=== PATIENT | female | born 2005 | race Caucasian/White ===

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

== ENCOUNTER 2023-08-09 14:39 | Emergency (ER) | payer OTHER ==
--- OUTSIDE RECORDS SUMMARY | 2023-08-09 14:45 | XMS REPORT | Continuity of Care Document ---
:2005 Author Organization [facility] t Address [address] [place] [address] Care Team Providers Name Role Phone Elizabeth Avery Primary Care Physician [phone] Betty Blair Attending Clinician Unknown, Attending Attending Clinician Unavailable BETTY ABEBE Attending Clinician Unavailable Bar Garcia RN Attending Clinician Unavailable ELIZABETH URRUTIA Attending Clinician Unavailable Elizabeth Avery Attending Clinician [phone] Doctor Unassigned, [place] Attending Clinician Unavailable CHUY GREEN Attending Clinician Unavailable Chuy Holland Attending Clinician KASH JEFFERSON Attending Clinician Unavailable Mninie Kaiser MD Attending Clinician Kash Jefferson MD Attending Clinician Antwan Noriega MD Attending Clinician Adi Diggs MD Attending Clinician JAYLEEN MONTAÑO Attending Clinician Unavailable Jayleen Montaño MD Attending Clinician Ultrasound, Ang-Mfm Attending Clinician Unavailable Trent Villegas MD Attending Clinician TRENT VILLEGAS Attending Clinician Unavailable Livia NICHOLS, Kit Alexander Attending Clinician KIT BHAKTA Attending Clinician Unavailable Aneudy NICHOLS, Tiffany Gleason Attending Clinician TIFFANY AMADO Attending Clinician Unavailable SHARON TIAN Attending Clinician Unavailable Jaylan LYNNE, Sharon Escobedo Attending Clinician JONNY OLVERA Attending Clinician Unavailable Jonny Olvera MD Attending Clinician JAYLEEN MONTAÑO Admitting Clinician Unavailable KASH JEFFERSON Admitting Clinician Unavailable Kash Jefferson MD Admitting Clinician Jayleen Montaño MD Admitting Clinician Payers Payer Name Policy Type Policy Number Effective Date Expiration Date S cirilo [facility]LY [facility] [id number] 2021 00:00:00 [place] [id number] 2021 00:00:00 Problems Condition Condition Condition Status Onset Resolution Last Treating Co mments Source Name Details Category Date Date Treatment Clinician Date Nexplanon Nexplanon Disease Active Uni vers insertion insertion 1-17 ity of 00:00: [place] [facility] Other Other Disease Active Univers general general 9-27 [place] [facility] contracept contracept chiara chiara management management Disease Active U nivers care and care and 906 ity of examinatio examinatio [place] of n of 00 Medical lactating lactating Bran ch mother mother Acute Acute Disease Active Univers blood loss blood loss 8-15 it y of anemia anemia 00:00: [place] [facility] Branch Obstetrica Obstetrica Disease Active U nivers l l 8-15 ity of laceration [place] BMI BMI Disease Active Univers 26.0-26.9, 26.0-26.9, 7-21 it y of adult adult 00:00: [place] [facility] Allergies, Adverse Reactions, Alerts Allergy Allergy Status Severity Reaction(s) Onset Inactive Treating Comm ents Source Name Type Date Date Clinician NO KNOWN Drug Active Univers ALLERGIE Class ity of S [facility] Social History Social Habit Start Date Stop Date Quantity Comments Source Gender identity Universit y [facility] Sexual orientation Univer sity [facility] Alcohol intake 2023-06-16 2023-06-16 Lifetime University of 00:00:00 00:00:00 non-drinker [facility] (finding) [place] Exposure to 2022-12-01 2022-12-11 Not sure [facility] SARS-CoV-2 (event) 00:00:00 12:08:00 [facility] History of Social 2022-08-22 2022-08-22 Univers ity of function 00:00:00 00:00:00 [facility] Tobacco use and 2022-06-15 2022-06-15 Former smokeless Uni versity of exposure 00:00:00 00:00:00 tobacco user Formerly [facility] Tobacco Comment 2022-06-15 2022-06-15 vapes Universit y of 00:00:00 00:00:00 [facility] History of tobacco 2021-11-[address] [facility] sity of use 00:00:00 smokeless [facility] tobacco [place] Sex Assigned At [birth year] Universit y of 00:00:00 00:00:00 [facility] Smoking Status Start Date Stop Date Source Ex-smoker 2022-06-15 00:00:00 2022-06-15 00:00:00 [facility] Medications Ordered Filled Start Stop Current Ordering Indication Dosage Frequency Signature Comments Components Source Medication Medication Date Date Medication? Clinician (SIG) Name Name phenazopyri Yes [id number] 200mg Take 1 Univers dine 06-16 tablet by ity of (PYRIDIUM) 00:00[place] (three) Medical tablet times Branch daily as needed for Pain. Nitrofurant 2022- Yes [id number] 100mg Take 1 Univers oin&Nit. 06-16 07-28 capsule by ity of [place] 04[place] (MACROBID[place] :00 the Medical 100 mg morning Branch capsule and 1 capsule in the evening. Do all this for 5 days. etonogestre 2022- No [id number] 68mg Univers L 12-12 ity of (NEXPLANON) 17:15: 16:41 [place] implant 68 00 :00 Medical mg Branch etonogestre 2022- No [id number] 68mg 68 mg, Univers L 12-12 Subdermal, ity of (NEXPLANON) 17:15: 16:41 ONCE NOW, [place] implant 68 00 :00 1 dose, On Med ical mg e [place] 12/12/22 at 1115, Routine
Use approved by: LITERACY COORDINATOR etonogestre 2022- No [id number] 68mg Univers L 12-12 ity of (NEXPLANON) 17:15: 16:41 [place] implant 68 00 :00 Medical mg Branch etonogestre 2022- No [id number] 68mg 68 mg, Univers L 12-12 Subdermal, ity of (NEXPLANON) 17:15: 16:41 ONCE NOW, [place] implant 68 00 :00 1 dose, On Med ical mg [facility] 12/12/22 at 1115, Routine
Use approved by: LITERACY COORDINATOR [facility]11 Yes [id number] 1{tbl} TAKE 1 Univers NE 0.35 mg 2-14 TABLET BY ity of tablet 00:00: MOUTH IN [address] NORETHINDRO 2021-11 Yes [id number] 1{tbl} TAKE 1 Univers NE 0.35 mg 2-14 TABLET BY ity of tablet 00:00: MOUTH IN [address] NORETHINDRO 2021-11 Yes [id number] 1{tbl} TAKE 1 Univers NE 0.35 mg 2-14 TABLET BY ity of tablet 00:00: MOUTH IN [address] NORETHINDRO 2021-11 Yes [id number] 1{tbl} TAKE 1 Univers NE 0.35 mg 2-14 TABLET BY ity of tablet 00:00: MOUTH IN [address] NORETHINDRO 2021-11 Yes [id number] 1{tbl} TAKE 1 Univers NE 0.35 mg 2-14 TABLET BY ity of tablet 00:00: MOUTH IN [place] 00 THE Medical MORNING Branch NORETHINDRO 2021-11 Yes [id number] 1{tbl} TAKE 1 Univers NE 0.35 mg 2-14 TABLET BY ity of tablet 00:00: MOUTH IN [place] THE MORNING Branch NORETHINDRO 2021-11 Yes [id number] 1{tbl} TAKE 1 Univers NE 0.35 mg 2-14 TABLET BY ity of tablet 00:00: MOUTH IN [place] THE Medical MORNING Branch NORETHINDRO 2021-11 Yes [id number] 1{tbl} TAKE 1 Univers NE 0.35 mg 2-14 TABLET BY ity of tablet 00:00: MOUTH IN [place] THE Medical MORNING Branch NORETHINDRO 2021-11 Yes [id number] 1{tbl} TAKE 1 Univers NE 0.35 mg 2-14 TABLET BY ity of tablet 00:00: MOUTH IN [place] THE Medical MORNING Branch norethindro Yes [id number] 1{tbl} Take 1 Univers ne 0.35 mg 9-27 tablet by ity of tablet 00:00: mouth in [place] 00 the Medical morning. Branch norethindro Yes [id number] 1{tbl} Take 1 Univers ne 0.35 mg 9-27 tablet by ity of tablet 00:00: mouth in [place] the morning. Branch norethindro Yes [id number] 1{tbl} Take 1 Univers ne 0.35 mg 9-27 tablet by ity of tablet 00:00: mouth in [place] the Medical morning. Branch norethindro 2021- No [id number] 1{tbl} Take 1 Univers ne 0.35 mg 9-27 12-14 tablet by ity of tablet 00:00: 00:00 mouth in [place] 00 :00 the Medical morning. Branch ibuprofen Yes [id number] 600mg Take 1 U nivers 600 mg 8-15 tablet by ity of tablet 00:00: mouth [place] 00 every 6 Medical (six) Branch hours as needed (Pain). Take with food or milk. Iron Fum & Yes [id number] 1{capsu Take 1 Univers P-FA-Vit B 8-15 le} capsule by ity of & C No.9 00:00: mouth [place] (INTEGRA 00 daily. Medical PLUS) 125 Branch mg iron- 1 mg Cap ibuprofen 2022-0 Yes [id number] 600mg Take 1 U nivers 600 mg 8-15 tablet by ity of tablet 00:00: mouth [place] 00 every 6 Medical (six) Branch hours as needed (Pain). Take with food or milk. Iron Fum & 2021-0 Yes [id number] 1{capsu Take 1 Univers P-FA-Vit B 8-15 le} capsule by ity of & C No.9 00:00: mouth [place] (INTEGRA 00 daily. Medical PLUS) 125 Branch mg iron- 1 mg Cap ibuprofen 2-0 Yes [id number] 600mg Take 1 U nivers 600 mg 8-15 tablet by ity of tablet 00:00: mouth [place] 00 every 6 Medical (six) Branch hours as needed (Pain). Take with food or milk. Iron Fum & 2021-0 Yes [id number] 1{capsu Take 1 Univers P-FA-Vit B 8-15 le} capsule by ity of & C No.9 00:00: mouth [place] (INTEGRA 00 daily. Medical PLUS) 125 Branch mg iron- 1 mg Cap ibuprofen 2-0 Yes [id number] 600mg Take 1 U nivers 600 mg 8-15 tablet by ity of tablet 00:00: mouth [place] 00 every 6 Medical (six) Branch hours as needed (Pain). Take with food or milk. Iron Fum & 2021-0 Yes [id number] 1{capsu Take 1 Univers P-FA-Vit B 8-15 le} capsule by ity of & C No.9 00:00: mouth [place] (INTEGRA 00 daily. Medical PLUS) 125 Branch mg iron- 1 mg Cap ibuprofen 2022-0 Yes [id number] 600mg Take 1 U nivers 600 mg 8-15 tablet by ity of tablet 00:00: mouth [place] 00 every 6 Medical (six) Branch hours as needed (Pain). Take with food or milk. Iron Fum & 2021-0 Yes [id number] 1{capsu Take 1 Univers P-FA-Vit B 8-15 le} capsule by ity of & C No.9 00:00: mouth [place] (INTEGRA 00 daily. Medical PLUS) 125 Branch mg iron- 1 mg Cap ibuprofen 2-0 Yes [id number] 600mg Take 1 U nivers 600 mg 8-15 tablet by ity of tablet 00:00: mouth [place] 00 every 6 Medical (six) Branch hours as needed (Pain). Take with food or milk. Iron Fum & 2021-0 Yes [id number] 1{capsu Take 1 Univers P-FA-Vit B 8-15 le} capsule by ity of & C No.9 00:00: mouth [place] (INTEGRA 00 daily. Medical PLUS) 125 Branch mg iron- 1 mg Cap ibuprofen 2021-0 Yes [id number] 600mg Take 1 U nivers 600 mg 8-15 tablet by ity of tablet 00:00: mouth [place] 00 every 6 Medical (six) Branch hours as needed (Pain). Take with food or milk. Iron Fum & 2021-0 Yes [id number] 1{capsu Take 1 Univers P-FA-Vit B 8-15 le} capsule by ity of & C No.9 00:00: mouth [place] (INTEGRA 00 daily. Medical PLUS) 125 Branch mg iron- 1 mg Cap ibuprofen 2021-0 Yes [id number] 600mg Take 1 U nivers 600 mg 8-15 tablet by ity of tablet 00:00: mouth [place] 00 every 6 Medical (six) Branch hours as needed (Pain). Take with food or milk. Iron Fum & 2021-0 Yes [id number] 1{capsu Take 1 Univers P-FA-Vit B 8-15 le} capsule by ity of & C No.9 00:00: mouth [place] (INTEGRA 00 daily. Medical PLUS) 125 Branch mg iron- 1 mg Cap ibuprofen 2021-0 Yes [id number] 600mg Take 1 U nivers 600 mg 8-15 tablet by ity of tablet 00:00: mouth [place] 00 every 6 Medical (six) Branch hours as needed (Pain). Take with food or milk. Iron Fum & 2021-0 Yes [id number] 1{capsu Take 1 Univers P-FA-Vit B 8-15 le} capsule by ity of & C No.9 00:00: mouth [place] (INTEGRA 00 daily. Medical PLUS) 125 Branch mg iron- 1 mg Cap ibuprofen 2-0 Yes [id number] 600mg Take 1 U nivers 600 mg 8-15 tablet by ity of tablet 00:00: mouth [place] 00 every 6 Medical (six) Branch hours as needed (Pain). Take with food or milk. Iron Fum & Yes [id number] 1{capsu Take 1 Univers P-FA-Vit B 8-15 le} capsule by ity of & C No.9 00:00: mouth [place] (INTEGRA 00 daily. Medical PLUS) 125 Branch mg iron- 1 mg Cap ibuprofen 0 Yes [id number] 600mg Take 1 U nivers 600 mg 8-15 tablet by ity of tablet 00:00: mouth [place] every 6 Medical (six) Branch hours as needed (Pain). Take with food or milk. Iron Fum & Yes [id number] 1{capsu Take 1 Univers P-FA-Vit B 8-15 le} capsule by ity of & C No.9 00:00: mouth [place] (INTEGRA 00 daily. Medical PLUS) 125 Branch mg iron- 1 mg Cap ibuprofen 0 Yes [id number] 600mg Take 1 U nivers 600 mg 8-15 tablet by ity of tablet 00:00: mouth [place] every 6 Medical (six) Branch hours as needed (Pain). Take with food or milk. Iron Fum & Yes [id number] 1{capsu Take 1 Univers P-FA-Vit B 8-15 le} capsule by ity of & C No.9 00:00: mouth [place] (INTEGRA 00 daily. Medical PLUS) 125 Branch mg iron- 1 mg Cap ibuprofen 0 Yes [id number] 600mg Take 1 U nivers 600 mg 8-15 tablet by ity of tablet 00:00: mouth [place] every 6 Medical (six) Branch hours as needed (Pain). Take with food or milk. Iron Fum & Yes [id number] 1{capsu Take 1 Univers P-FA-Vit B 8-15 le} capsule by ity of & C No.9 00:00: mouth [place] (INTEGRA 00 daily. Medical PLUS) 125 Branch mg iron- 1 mg Cap 0 Yes [id number] 1{packe Take 1 Univers vit 1-31 t} Packet by ity of 33-iron-fol 00:00: mouth [place] ic-dha 00 daily. Medical (SELECT-OB Branch + DHA) 29 mg iron-1 mg -250 mg combo pack Yes [id number] 1{packe Take 1 Univers vit 1-31 t} Packet by ity of 33-iron-fol 00:00: mouth [place] ic-dha 00 daily. Medical (SELECT-OB Branch + DHA) 29 mg iron-1 mg -250 mg combo pack Yes [id number] 1{packe Take 1 Univers vit 1-31 t} Packet by ity of 33-iron-fol 00:00: mouth [place] ic-dha 00 daily. Medical (SELECT-OB Branch + DHA) 29 mg iron-1 mg -250 mg combo pack Yes [id number] 1{packe Take 1 Univers vit 1-31 t} Packet by ity of 33-iron-fol 00:00: mouth [place] ic-dha 00 daily. Medical (SELECT-OB Branch + DHA) 29 mg iron-1 mg -250 mg combo pack Yes [id number] 1{packe Take 1 Univers vit 1-31 t} Packet by ity of 33-iron-fol 00:00: mouth [place] ic-dha 00 daily. Medical (SELECT-OB Branch + DHA) 29 mg iron-1 mg -250 mg combo pack Yes [id number] 1{packe Take 1 Univers vit 1-31 t} Packet by ity of 33-iron-fol 00:00: mouth [place] ic-dha daily. Medical (SELECT-OB Branch + DHA) 29 mg iron-1 mg -250 mg combo pack Yes [id number] 1{packe Take 1 Univers vit 1-31 t} Packet by ity of 33-iron-fol 00:00: mouth [place] ic-dha 00 daily. Medical (SELECT-OB Branch + DHA) 29 mg iron-1 mg -250 mg combo pack Yes [id number] 1{packe Take 1 Univers vit 1-31 t} Packet by ity of 33-iron-fol 00:00: mouth [place] ic-dha 00 daily. Medical (SELECT-OB Branch + DHA) 29 mg iron-1 mg -250 mg combo pack Yes [id number] 1{packe Take 1 Univers vit 1-31 t} Packet by ity of 33-iron-fol 00:00: mouth [place] ic-dha 00 daily. Medical (SELECT-OB Branch + DHA) 29 mg iron-1 mg -250 mg combo pack Yes [id number] 1{packe Take 1 Univers vit 1-31 t} Packet by ity of 33-iron-fol 00:00: mouth [place] ic-dha 00 daily. Medical (SELECT-OB Branch + DHA) 29 mg iron-1 mg -250 mg combo pack Yes [id number] 1{packe Take 1 Univers vit 1-31 t} Packet by ity of 33-iron-fol 00:00: mouth [place] ic-dha 00 daily. Medical (SELECT-OB Branch + DHA) 29 mg iron-1 mg -250 mg combo pack Yes [id number] 1{packe Take 1 Univers vit 1-31 t} Packet by ity of 33-iron-fol 00:00: mouth [place] ic-dha 00 daily. Medical (SELECT-OB Branch + DHA) 29 mg iron-1 mg -250 mg combo pack Yes [id number] 1{packe Take 1 Univers vit 1-31 t} Packet by ity of 33-iron-fol 00:00: mouth [place] ic-dha 00 daily. Medical (SELECT-OB Branch + DHA) 29 mg iron-1 mg -250 mg combo pack Immunizations Ordered Immunization Filled Immunization Date Status Commen ts Source Name Name HPV9 2022-11-21 Completed University of 00:00:00 [facility] HPV9 2022-11-21 Completed University of 00:00: [facility] HPV9 2022-11-21 Completed University of 00:00:00 [facility] HPV9 2022-11-21 Completed University of 00:00: [facility] HPV9 2022-11-21 Completed University of 00:00:00 [facility] HPV9 2022-11-21 Completed University of 00:00:00 [facility] HPV9 2022-11-21 Completed University of 00:00: [facility] HPV9 2022-11-21 Completed University of 00:00: [facility] HPV9 2022-07-10 Completed University of 00:00:00 [facility] HPV9 2022-07-10 Completed University of 00:00: [facility] HPV9 2022-07-10 Completed University of 00:00:00 [facility] HPV9 2022-07-10 Completed University of 00:00:00 [place] [facility] HPV9 2022-07-10 Completed University of 00:00:00 [facility] Branch HPV9 2022-07-10 Completed University of 00:00:00 [place] [facility] HPV9 2022-07-10 Completed University of 00:00:00 [facility] Branch HPV9 2022-07-10 Completed University of 00:00:00 [facility] Branch HPV9 2022-07-10 Completed University of 00:00:00 [place] [facility] HPV9 2022-07-10 Completed University of 00:00:00 [place] [facility] HPV9 2022-07-10 Completed University of 00:00:00 [facility] Branch HPV9 2022-07-10 Completed University of 00:00:00 [facility] Branch HPV9 2022-07-10 Completed University of 00:00:00 [facility] Branch TDAP 2022-04-18 Completed University of 00:00:00 [facility] Branch TDAP 2022-04-18 Completed University of 00:00:00 [place] [facility] TDAP 2022-04-18 Completed University of 00:00:00 [place] [facility] TDAP 2022-04-18 Completed University of 00:00:00 [place] [facility] TDAP 2022-04-18 Completed University of 00:00:00 [place] [facility] TDAP 2022-04-18 Completed University of 00:00:00 [place] [facility] TDAP 2022-04-18 Completed University of 00:00:00 [facility] Branch TDAP 2022-04-18 Completed University of 00:00:00 [facility] Branch TDAP 2022-04-18 Completed University of 00:00:00 [place] [facility] TDAP 2022-04-18 Completed University of 00:00:00 [place] [facility] TDAP 2022-04-18 Completed University of 00:00:00 [place] [facility] TDAP 2022-04-18 Completed University of 00:00:00 [place] [facility] TDAP 2022-04-18 Completed University of 00:00:00 [facility] Branch HPV9 2021-07-13 Completed University of 00:00:00 [facility] HPV9 2021-07-13 Completed University of 00:00:00 [facility] Branch HPV9 2021-07-13 Completed University of 00:00:00 [facility] Branch HPV9 2021-07-13 Completed University of 00:00: [facility] HPV9 2021-07-13 Completed University of 00:00: [facility] HPV9 2021-07-13 Completed University of 00:00: [facility] Branch HPV9 2021-07-13 Completed University of 00:00: [facility] Branch HPV9 2021-07-13 Completed University of 00:00: [facility] Branch HPV9 2021-07-13 Completed University of 00:00: [facility] HPV9 2021-07-13 Completed University of 00:00: [facility] Branch HPV9 2021-07-13 Completed University of 00:00: [facility] HPV9 2021-07-13 Completed University of 00:00:00 [facility] HPV9 2021-07-13 Completed University of 00:00:00 [facility] Influenza Virus 2017-03-20 Completed Universit y of Vaccine Quad .5 mL IM 00:00:00 [place] as Medical 6+ MO Branch HPV9 2017-03-20 Completed University of 00:00:00 [facility] Meningococcal 2017-03-20 Completed University of Polysaccharide 00:00:00 [place] Medi mundo (groups A, C, Y and Branc h W-135) conjugate vaccine (MCV4P) Influenza Virus 2017-03-20 Completed Universit y of Vaccine Quad .5 mL IM 00:00:00 [place] as Medical 6+ MO Branch HPV9 2017-03-20 Completed University of 00:00:00 [facility] Meningococcal 2017-03-20 Completed University of Polysaccharide 00:00:00 [place] Medi mundo (groups A, C, Y and Branc h W-135) conjugate vaccine (MCV4P) Influenza Virus 2017-03-20 Completed Universit y of Vaccine Quad .5 mL IM 00:00:00 [place] as Medical 6+ MO Branch HPV9 2017-03-20 Completed University of 00:00:00 [facility] Meningococcal 2017-03-20 Completed University of Polysaccharide 00:00:00 [place] Medi mundo (groups A, C, Y and Branc h W-135) conjugate vaccine (MCV4P) Influenza Virus 2017-03-20 Completed Universit y of Vaccine Quad .5 mL IM 00:00:00 [place] as Medical 6+ MO Branch HPV9 2017-03-20 Completed University of 00:00:00 [facility] Meningococcal 2017-03-20 Completed University of Polysaccharide 00:00:00 [place] Medi mundo (groups A, C, Y and Branc h W-135) conjugate vaccine (MCV4P) Influenza Virus 2017-03-20 Completed Universit y of Vaccine Quad .5 mL IM 00:00:00 [place] as Medical 6+ MO Branch HPV9 2017-03-20 Completed University of 00:00:00 [facility] Meningococcal 2017-03-20 Completed University of Polysaccharide 00:00:00 [place] Medi mundo (groups A, C, Y and Branc h W-135) conjugate vaccine (MCV4P) Influenza Virus 2017-03-20 Completed Universit y of Vaccine Quad .5 mL IM 00:00:00 [place] as Medical 6+ MO Branch HPV9 2017-03-20 Completed University of 00:00:00 [facility] Meningococcal 2017-03-20 Completed University of Polysaccharide 00:00:00 [place] Medi mundo (groups A, C, Y and Branc h W-135) conjugate vaccine (MCV4P) TDAP 2015-05-13 Completed University of 00:00:00 [facility] TDAP 2015-05-13 Completed University of 00:00:00 [facility] TDAP 2015-05-13 Completed University of 00:00:00 [facility] TDAP 2015-05-13 Completed University of 00:00:00 [facility] TDAP 2015-05-13 Completed University of 00:00:00 [facility] TDAP 2015-05-13 Completed University of 00:00:00 [facility] DTaP, Unspecified 2008-10-26 Completed Univers ity of Formulation 00:00:00 [facility] HEPATITIS A 2008-10-26 Completed University of 00:00:00 [facility] MMR 2008-10-26 Completed University of 00:00:00 [facility] IPV 2008-10-26 Completed University of 00:00:00 [facility] Varicella 2008-10-26 Completed University of (varivax)(chicken 00:00:00 [facility] edical pox) Branch DTaP, Unspecified 2008-10-26 Completed Univers ity of Formulation 00:00:00 [facility] HEPATITIS A 2008-10-26 Completed University of 00:00:00 [facility] MMR 2008-10-26 Completed University of 00:00:00 [facility] IPV 2008-10-26 Completed University of 00:00:00 [facility] Varicella 2008-10-26 Completed University of (varivax)(chicken 00:00:00 [place] M edical pox) Branch DTaP, Unspecified 2008-10-26 Completed Univers ity of Formulation 00:00:00 [facility] HEPATITIS A 2008-10-26 Completed University of 00:00:00 [facility] MMR 2008-10-26 Completed University of 00:00:00 [facility] IPV 2008-10-26 Completed University of 00:00:00 [facility] Varicella 2008-10-26 Completed University of (varivax)(chicken 00:00:00 [place] M edical pox) Branch DTaP, Unspecified 2008-10-26 Completed Univers ity of Formulation 00:00:00 [facility] HEPATITIS A 2008-10-26 Completed University of 00:00:00 [facility] MMR 2008-10-26 Completed University of 00:00:00 [facility] IPV 2008-10-26 Completed University of 00:00:00 [facility] Varicella 2008-10-26 Completed University of (varivax)(chicken 00:00:00 [place] M edical pox) Branch DTaP, Unspecified 2008-10-26 Completed Univers ity of Formulation 00:00:00 [facility] HEPATITIS A 2008-10-26 Completed University of 00:00:00 [place] [facility] MMR 2008-10-26 Completed University of 00:00:00 [facility] IPV 2008-10-26 Completed University of 00:00:00 [facility] Varicella 2008-10-26 Completed University of (varivax)(chicken 00:00:00 [place] [facility] DTaP, Unspecified 2008-10-26 Completed Univers ity of Formulation 00:00:00 [facility] HEPATITIS A 2008-10-26 Completed University of 00:00:00 [facility] MMR 2008-10-26 Completed University of 00:00:00 [facility] IPV 2008-10-26 Completed University of 00:00:00 [facility] Varicella 2008-10-26 Completed University of (varivax)(chicken 00:00:00 [place] [facility] HEPATITIS A 2007 Completed University of 00:00:00 [facility] HEPATITIS A 2007 Completed University of 00:00:00 [facility] HEPATITIS A 2007 Completed University of 00:00:00 [facility] HEPATITIS A 2007 Completed University of 00:00:00 [facility] HEPATITIS A 2007 Completed University of 00:00:00 [facility] HEPATITIS A 2007 Completed University of 00:00:00 [facility] DTaP, Unspecified 2004-07-28 Completed Univers ity of Formulation 00:00:00 [facility] HIB 4 Dose Schedule 2004-07-28 Completed Unive rsity of 00:00:00 [facility] DTaP, Unspecified 2004-07-28 Completed Univers ity of Formulation 00:00:00 [facility] HIB 4 Dose Schedule 2004-07-28 Completed Unive rsity of 00:00:00 [facility] DTaP, Unspecified 2004-07-28 Completed Univers ity of Formulation 00:00:00 [facility] HIB 4 Dose Schedule 2004-07-28 Completed Unive rsity of 00:00:00 [facility] DTaP, Unspecified 2004-07-28 Completed Univers ity of Formulation 00:00:00 [facility] HIB 4 Dose Schedule 2004-07-28 Completed Unive rsity of 00:00:00 [facility] DTaP, Unspecified 2004-07-28 Completed Univers ity of Formulation 00:00:00 [facility] HIB 4 Dose Schedule 2004-07-28 Completed Unive rsity of 00:00:00 [facility] DTaP, Unspecified 2004-07-28 Completed Univers ity of Formulation 00:00:00 [facility] HIB 4 Dose Schedule 2004-07-28 Completed Unive rsity of 00:00:00 [facility] MMR 2004-05-19 Completed University of 00:00:00 [facility] IPV 2004-05-19 Completed University of 00:00:00 [facility] Varicella 2004-05-19 Completed University of (varivax)(chicken 00:00:00 [place] [facility] MMR 2004-05-19 Completed University of 00:00:00 [facility] IPV 2004-05-19 Completed University of 00:00:00 [facility] Varicella 2004-05-19 Completed University of (varivax)(chicken 00:00:00 [place] [facility]ox[facility] MMR 2004-05-19 Completed University of 00:00:00 [facility] IPV 2004-05-19 Completed University of 00:00:00 [facility] Varicella 2004-05-19 Completed University of (varivax)(chicken 00:00:00 [place] [facility] pox[facility] MMR 2004-05-19 Completed University of 00:00:00 [facility] IPV 2004-05-19 Completed University of 00:00:00 [facility] Varicella 2004-05-19 Completed University of (varivax)(chicken 00:00:00 [place] [facility] pox) [facility] MMR 2004-05-19 Completed University [facility] 00:00:00 [facility] IPV 2004-05-19 Completed University of 00:00:00 [facility] Varicella 2004-05-19 Completed University of (varivax)(chicken 00:00:00 [place] [facility] pox) [facility] MMR 2004-05-19 Completed University of 00:00:00 [facility] IPV 2004-05-19 Completed University of 00:00:00 [facility] Varicella 2004-05-19 Completed University of (varivax)(chicken 00:00:00 [facility] edical pox) Branch DTaP, Unspecified 2003 Completed Univers ity of Formulation 00:00:00 [facility] Hep B, Adol or Pedi 2003 Completed Unive rsity of Dosage 00:00:00 [facility] HIB 4 Dose Schedule 2003 Completed Unive rsity of 00:00:00 [facility] Pneumococcal 7 2003 Completed University of Conjugate, PCV7 00:00:00 [place] [facility] (Prevnar7) Branch DTaP, Unspecified 2003 Completed Univers ity of Formulation 00:00:00 [facility] Hep B, Adol or Pedi 2003 Completed Unive rsity of Dosage 00:00:00 [facility] HIB 4 Dose Schedule 2003 Completed Unive rsity of 00:00:00 [facility] Pneumococcal 7 2003 Completed University of Conjugate, PCV7 00:00:00 [place] [facility] (Prevnar7) Branch DTaP, Unspecified 2003 Completed Univers ity of Formulation 00:00:00 [facility] Hep B, Adol or Pedi 2003 Completed Unive rsity of Dosage 00:00:00 [facility] HIB 4 Dose Schedule 2003 Completed Unive rsity of 00:00:00 [facility] Pneumococcal 7 2003 Completed University of Conjugate, PCV7 00:00:00 [place] [facility] (Prevnar7) Branch DTaP, Unspecified 2003 Completed Univers ity of Formulation 00:00:00 [facility] Hep B, Adol or Pedi 2003 Completed Unive rsity of Dosage 00:00:00 [facility] HIB 4 Dose Schedule 2003 Completed Unive rsity of 00:00:00 [facility] Pneumococcal 7 2003 Completed University of Conjugate, PCV7 00:00:00 [place] [facility] (Prevnar7) Branch DTaP, Unspecified 2003 Completed Univers ity of Formulation 00:00:00 [facility] Hep B, Adol or Pedi 2003 Completed Unive rsity of Dosage 00:00:00 [facility] HIB 4 Dose Schedule 2003 Completed Unive rsity of 00:00:00 [facility] Pneumococcal 7 2003 Completed University of Conjugate, PCV7 00:00:00 [place] [facility] (Prevnar7) Branch DTaP, Unspecified 2003 Completed Univers ity of Formulation 00:00:00 [facility] Hep B, Adol or Pedi 2003 Completed Unive rsity of Dosage 00:00:00 [facility] HIB 4 Dose Schedule 2003 Completed Unive rsity of 00:00:00 [facility] Pneumococcal 7 2003 Completed University of Conjugate, PCV7 00:00:00 [place] [facility] (Prevnar7) Branch DTaP, Unspecified 2003 Completed Univers ity of Formulation 00:00:00 [facility] HIB 4 Dose Schedule 2003 Completed Unive rsity of 00:00:00 [facility] Pneumococcal 7 2003 Completed University of Conjugate, PCV7 00:00:00 [place] [facility] (Prevnar7) [facility] IPV 2003 Completed University of 00:00:00 [facility] DTaP, Unspecified 2003 Completed Univers ity of Formulation 00:00:00 [facility] HIB 4 Dose Schedule 2003 Completed Unive rsity of 00:00:00 [facility] Pneumococcal 7 2003 Completed University of Conjugate, PCV7 00:00:00 [place] [facility] (Prevnar7) [facility] IPV 2003 Completed University of 00:00:00 [facility] DTaP, Unspecified 2003 Completed Univers ity of Formulation 00:00:00 [facility] HIB 4 Dose Schedule 2003 Completed Unive rsity of 00:00:00 [facility] Pneumococcal 7 2003 Completed University of Conjugate, PCV7 00:00:00 [place] [facility] (Prevnar7) Branch IPV 2003 Completed University of 00:00:00 [facility] DTaP, Unspecified 2003 Completed Univers ity of Formulation 00:00:00 [facility] HIB 4 Dose Schedule 2003 Completed Unive rsity of 00:00:00 [facility] Pneumococcal 7 2003 Completed University of Conjugate, PCV7 00:00:00 [place] [facility] (Prevnar7) Branch IPV 2003 Completed University of 00:00:00 [facility] DTaP, Unspecified 2003 Completed Univers ity of Formulation 00:00:00 [facility] HIB 4 Dose Schedule 2003 Completed Unive rsity of 00:00:00 [facility] Pneumococcal 7 2003 Completed University of Conjugate, PCV7 00:00:00 [place] [facility] (Prevnar7) Branch IPV 2003 Completed University of 00:00:00 [facility] DTaP, Unspecified 2003 Completed Univers ity of Formulation 00:00:00 [facility] HIB 4 Dose Schedule 2003 Completed Unive rsity of 00:00:00 [facility] Pneumococcal 7 2003 Completed University of Conjugate, PCV7 00:00:00 [place] [facility] (Prevnar7) Branch IPV 2003 Completed University of 00:00:00 [facility] IPV 2003 Completed University of 00:00:00 [facility] IPV 2003 Completed University of 00:00:00 [facility] IPV 2003 Completed University of 00:00:00 [facility] IPV 2003 Completed University of 00:00:00 [facility] IPV 2003 Completed University of 00:00:00 [facility] IPV 2003 Completed University of 00:00:00 [facility] DTaP, Unspecified 2003 Completed Univers ity of Formulation 00:00:00 [facility] Hep B, Adol or Pedi 2003 Completed Unive rsity of Dosage 00:00:00 [facility] HIB 4 Dose Schedule 2003 Completed Unive rsity of 00:00:00 [facility] Pneumococcal 7 2003 Completed University of Conjugate, PCV7 00:00:00 [place] [facility] (Prevnar7) Branch IPV 2003 Completed University of 00:00:00 [facility] DTaP, Unspecified 2003 Completed Univers ity of Formulation 00:00:00 [facility] Hep B, Adol or Pedi 2003 Completed Unive rsity of Dosage 00:00:00 [facility] HIB 4 Dose Schedule 2003 Completed Unive rsity of 00:00:00 [facility] Pneumococcal 7 2003 Completed University of Conjugate, PCV7 00:00:00 [place] [facility] (Prevnar7) Branch IPV 2003 Completed University of 00:00:00 [facility] DTaP, Unspecified 2003 Completed Univers ity of Formulation 00:00:00 [facility] Hep B, Adol or Pedi 2003 Completed Unive rsity of Dosage 00:00:00 [facility] HIB 4 Dose Schedule 2003 Completed Unive rsity of 00:00:00 [facility] Pneumococcal 7 2003 Completed University of Conjugate, PCV7 00:00:00 [place] [facility] (Prevnar7) Branch IPV 2003 Completed University of 00:00:00 [facility] DTaP, Unspecified 2003 Completed Univers ity of Formulation 00:00:00 [facility] Hep B, Adol or Pedi 2003 Completed Unive rsity of Dosage 00:00:00 [facility] HIB 4 Dose Schedule 2003 Completed Unive rsity of 00:00:00 [facility] Pneumococcal 7 2003 Completed University of Conjugate, PCV7 00:00:00 [place] [facility] (Prevnar7) Branch IPV 2003 Completed University of 00:00:00 [facility] DTaP, Unspecified 2003 Completed Univers ity of Formulation 00:00:00 [facility] Hep B, Adol or Pedi 2003 Completed Unive rsity of Dosage 00:00:00 [facility] HIB 4 Dose Schedule 2003 Completed Unive rsity of 00:00:00 [facility] Pneumococcal 7 2003 Completed University of Conjugate, PCV7 00:00:00 [place] [facility] (Prevnar7) Branch IPV 2003 Completed University of 00:00:00 [facility] DTaP, Unspecified 2003 Completed Univers ity of Formulation 00:00:00 [facility] Hep B, Adol or Pedi 2003 Completed Unive rsity of Dosage 00:00:00 [facility] HIB 4 Dose Schedule 2003 Completed Unive rsity of 00:00:00 [facility] Pneumococcal 7 2003 Completed University of Conjugate, PCV7 00:00:00 [place] [facility] (Prevnar7) Branch IPV 2003 Completed University of 00:00:00 [facility] Hep B, Adol or Pedi 2003 Completed Unive rsity of Dosage 00:00:00 [facility] Hep B, Adol or Pedi 2003 Completed Unive rsity of Dosage 00:00:00 [facility] Hep B, Adol or Pedi 2003 Completed Unive rsity of Dosage 00:00:00 [facility] Hep B, Adol or Pedi 2003 Completed Unive rsity of Dosage 00:00:00 [facility] Hep B, Adol or Pedi 2003 Completed Unive rsity of Dosage 00:00:00 [facility] Hep B, Adol or Pedi 2003 Completed Unive rsity of Dosage 00:00:00 [facility] Hep B, Adol or Pedi 2003 Completed Unive rsity of Dosage 00:00:00 [facility] Hep B, Adol or Pedi 2003 Completed Unive rsity of Dosage 00:00:00 [facility] Hep B, Adol or Pedi 2003 Completed Unive rsity of Dosage 00:00:00 [facility] Hep B, Adol or Pedi 2003 Completed Unive rsity of Dosage 00:00:00 [facility] Hep B, Adol or Pedi 2003 Completed Unive rsity of Dosage 00:00:00 [facility] Hep B, Adol or Pedi 2003 Completed Unive rsity of Dosage 00:00:00 [facility] Vital Signs Vital Name Observation Time Observation Value Comments Source Systolic blood 2023-06-17 00:41:00 100 mm[Hg] Univer sity of pressure [facility] Diastolic blood 2023-06-17 00:41:00 68 mm[Hg] Unive rsity of pressure [facility] Heart rate 2023-06-17 00:41:00 97 /min Universi ty of [facility] Body temperature 2023-06-17 00:41:00 36.67 Erlinda Univ ersity of [facility] Respiratory rate 2023-06-17 00:41:00 16 /min Univ ersity of [facility] Body height 2023-06-17 00:41:00 154.9 cm Universi ty of [facility] Body weight 2023-06-17 00:41:00 53.071 kg Universi ty of [facility] BMI 2023-06-17 00:41:00 22.11 kg/m2 Universi ty of [facility] Oxygen saturation in 2023-06-17 00:41:00 98 /min [facility] Arterial blood by [facility] Pulse oximetry Branch Systolic blood 2022-12-12 15:53:00 105 mm[Hg] Univer sity of pressure [facility] Diastolic blood 2022-12-12 15:53:00 69 mm[Hg] Unive rsity of pressure [facility] Heart rate 2022-12-12 15:53:00 91 /min Universi ty of [facility] Body temperature 2022-12-12 15:53:00 36.33 Erlinda Univ ersity of [facility] Respiratory rate 2022-12-12 15:53:00 18 /min Univ ersity of [facility] Body height 2022-12-12 15:53:00 157.5 cm Universi ty of [facility] Body weight 2022-12-12 15:53:00 55.509 kg Universi ty of [facility] [place] BMI 2022-12-12 15:53:00 22.38 kg/m2 Universi ty of [facility] Systolic blood 2022-11-21 15:27:00 107 mm[Hg] Univer sity of pressure [facility] Diastolic blood 2022-11-21 15:27:00 75 mm[Hg] Unive rsity of pressure [facility] Heart rate 2022-11-21 15:27:00 92 /min Universi ty of [facility] Body temperature 2022-11-21 15:27:00 36.44 Erlinda Univ ersity of [facility] Respiratory rate 2022-11-21 15:27:00 18 /min Univ ersity of [facility] Body height 2022-11-21 15:27:00 157.5 cm Universi ty of [facility] Body weight 2022-11-21 15:27:00 54.942 kg Universi ty of [facility] BMI 2022-11-21 15:27:00 22.15 kg/m2 Universi ty [facility] Systolic blood 2022-08-22 13:35:00 109 mm[Hg] Univer sity of pressure [facility] Diastolic blood 2022-08-22 13:35:00 65 mm[Hg] Unive rsity of pressure [facility] Heart rate 2022-08-22 13:35:00 90 /min Universi ty of [facility] Body temperature 2022-08-22 13:35:00 35.83 Erlinda Univ ersity of [facility] Respiratory rate 2022-08-22 13:35:00 18 /min Univ ersity of [facility] Body height 2022-08-22 13:35:00 157.5 cm Universi ty of [facility] Body weight 2022-08-22 13:35:00 57.238 kg Universi ty of [facility] BMI 2022-08-22 13:35:00 23.08 kg/m2 Universi ty of [facility] Systolic blood 2022-08-01 13:36:00 81 mm[Hg] Univer sity of pressure [facility] Diastolic blood 2022-08-01 13:36:00 53 mm[Hg] Unive rsity of pressure [facility] Heart rate 2022-08-01 13:36:00 106 /min Universi ty of [facility] Body temperature 2022-08-01 13:36:00 36.06 Erlinda Univ ersity of [facility] Respiratory rate 2022-08-01 13:36:00 16 /min Univ ersity of [facility] Body height 2022-08-01 13:36:00 157.5 cm [facility] Body weight 2022-08-01 13:36:00 57.635 kg [facility] BMI 2022-08-01 13:36:00 23.24 kg/m2 [facility] Procedures Procedure Date / Time Performing Clinician Source Performed POCT TEST 2023-06-17 00:55:00 Betty Abebe [facility] POCT URINALYSIS 2023-06-17 00:54:00 Alberta [facility] POCT TEST 2022-12-12 15:55:00 Elizabeth Urrutia [facility] CONSENT FOR 2022-12-12 06:01:00 Doctor Unassigned, No [facility] CONTRACEPTION Name [facility] POCT TEST 2022-11-21 15:31:00 Elizabeth Urrutia [facility] GARDASIL 9 (HPV 9V) 2022-11-21 15:16:18 Sharon Tian [facility] VACCINE [facility] POCT TEST 2022-08-22 14:01:00 Elizabeth Urrutia [facility] Encounters Start End Encounter Admission Attending Care Care Encounter Source Date/Time Date/Time Type Type Clinicians Facility Department ID 2022-04-28 Outpatient X [facility] NIKHIL [id number] Univers 15:58:48 ity [facility] 2023-06-16 2023-06-16 Urgent Betty Abebe [facility] [id number] Univers 20:00:00 20:20:00 Care Unknown, Attending HEALTH [id number] [facility] [id number] [place] DANNY?BLEA [phone] [address] MEDICAL OFFICE BUILDING 2023-06-16 2023-06-16 Outpatient R MIS [facility] [id number] Univers 20:00:00 20:00:00 BETTY [facility] 2023-06-16 2023-06-16 Nurse LINDA Garcia [id number] Univers 00:00:00 00:00:00 Triage Bar ALVAREZ [id number] ity of [facility] [id number] [place] as [phone] [address] 2023-05-23 2023-05-23 Outpatient R [facility] [id number] Univers 16:00:00 16:00:00 ELIZABETHWIL varghese [facility] 2023-05-21 2023-05-21 Telephone [facility] [id number] Univers 00:00:00 00:00:00 Elizabeth Mitchell LITERACY COORDINATOR [id number]7.2.686 [place] MATERNAL [phone] [facility] & [address] 2022-12-26 2022-12-26 Outpatient R [facility] [id number] Univers 12:45:00 12:45:00 ELIZABETH mickiregis [facility] 2022-12-12 2022-12-12 Outpatient R [facility] [id number] Univers 10:00:00 10:10:14 ELIZABETH ity [facility] 2022-12-12 2022-12-12 Office [facility] [id number] Univers 10:00:00 10:10:14 Visit Elizabeth Mitchell LITERACY COORDINATOR [id number]7.2.686 [place] MATERNAL [phone] [facility] & [address] 2022-12-12 2022-12-12 Outpatient R [facility] [id number] Univers 09:45:00 09:45:00 ELIZABETHDONTAE horowitz [facility] 2022-12-12 2022-12-12 Orders Doctor MCKEON [id number] Univers 00:00:00 00:00:00 Only Unassigned, ANTONIO [id number] ity of [place] [id number] [place] as [id number] [address] 2022-11-21 2022-11-21 Outpatient R GHADA [facility] [id number] Univers 09:15:00 10:01:10 ELIZABETH varghese marga [facility] 2022-11-21 2022-11-21 Office Ghada [facility] [id number] Univers 09:15:00 10:01:10 Visit Elizabeth Mitchell LITERACY COORDINATOR [id number] ity of REGIONAL [id number] [place] MATERNAL [phone] [facility] ical & CHILD [address] [place] [address] 2022-11-08 2022-11-08 Refill Ghada [facility] [id number] Univers 00:00:00 00:00:00 Elizabeth Mitchell LITERACY COORDINATOR [id number] ity of REGIONAL [id number] [place] MATERNAL [id number] [facility] & CHILD [address] [place] [address] 2022-08-22 2022-08-22 Outpatient R NORMA [facility] [id number] Univers 08:45:00 09:09:32 CHUY varghese [facility] 2022-08-22 2022-08-22 Office Elizabeth Urrutia [facility] 1.2.8 [id number] Univers 08:45:00 09:09:32 Visit Chuy Green LITERACY COORDINATOR [id number] ity of [facility] [id number] [place] MATERNAL [phone] [facility] & CHILD [address] [place] [address] 2022-08-22 2022-08-22 Outpatient Catherine GREEN [facility] [id number] Univers 09:00:00 09:00:00 CHUY varghese [facility] 2022-08-01 2022-08-01 Outpatient R GHADA [facility] [id number] Univers 08:30:00 08:49:18 ELIZABETH varghese [facility] 2022-08-01 2022-08-01 Routine Elizabeth Urrutia [facility] 1.2.8 [id number] [id number] Univers 08:30:00 08:49:18 Chuy Green LITERACY COORDINATOR 350.1.13.1 0 ity of Visit REGIONAL [id number] [place] MATERNAL [id number] [facility] ical & CHILD [address] [place] [address] 2022-07-17 2022-07-17 Telephone Norma [facility] [id number] Univers 00:00:00 00:00:00 Chuy R LITERACY COORDINATOR [id number] ity of REGIONAL [id number] [place] MATERNAL [phone] [facility] & CHILD [address] [place] [address] 2022-07-08 2022-07-10 Inpatient P MODE [facility] NIKHIL [id number] Univers 08:42:00 16:23:00 KASH varghese [facility] 2022-07-08 2022-07-10 Hospital Minnie Kaiser 1.2.840.1 [id number] Univers 08:42:00 16:23:00 Encounter Kash Jefferson 350.1.13.1 0 ity of HOSPITAL 4.2.7.2.686 [place] as [phone] [facility] [address] 2022-07-09 2022-07-09 Anesthesia Antwan Noriega 1.2.8 40.114 [id number] Univers 00:05:00 12:25:00 Event Adi Diggs 350.1.13.1 0 ity of HOSPITAL 4.2.7.2.686 [place] as [phone] [facility] [address] 2022-07-08 2022-07-08 Inpatient P MODE [facility] NIKHIL [id number] Univers 08:42:00 08:42:00 KASH varghese [facility] 2022-07-08 2022-07-08 Keren MCKEON 1.2.840.114 [id number] Univers 00:00:00 00:00:00 Only UnassignedANTONIO 350.1.13.10 ity of [place] [facility] 4.2.7.2.686 [place] as [phone] [address] 2022-07-07 2022-07-07 Telephone [facility] [id number] [id number] Univers 00:00:00 00:00:00 Roshunda R LITERACY COORDINATOR 350.1.13.10 ity of REGIONAL 4.2.7.2.686 [place] as MATERNAL [id number] [facility] ical & CHILD [address] [place] [address] 2022-07-06 2022-07-06 Outpatient R [facility] [id number] Univers 14:30:00 15:15:24 ROSHUNDA ity o [facility] 2022-07-06 2022-07-06 Routine [facility] 1.2.840.114 [id number] Univers 14:30:00 15:15:24 Roshunda R LITERACY COORDINATOR 350.1.13.10 ity of Visit REGIONAL 4.2.7.2.686 [place] as MATERNAL [id number] [facility] & [address] 2022-06-29 2022-06-29 Routine [facility] 1.2.840.114 [id number] Univers 10:45:00 11:00:00 Roshunda R LITERACY COORDINATOR 350.1.13.10 ity of Visit REGIONAL 4.2.7.2.686 [place] MATERNAL [id number] [facility] & [address] 2022-06-29 2022-06-29 Outpatient R [facility] [id number] Univers 10:45:00 10:45:00 ROSHUNDA ity o [facility] 2022-06-22 2022-06-22 [facility] [id number] Univers 08:00:00 08:44:13 ROSHUNDA ity o [facility] 2022-06-22 2022-06-22 Routine [facility] 1.2.840.114 [id number] Univers 08:00:00 08:44:13 Roshunda R LITERACY COORDINATOR 350.1.13.10 ity of Visit REGIONAL 4.2.7.2.686 [place] MATERNAL [phone] [facility] CH[facility] [address] [place] [address] 2022-06-22 2022-06-22 Outpatient Catherine [facility] [id number] Univers 08:00:00 08:00:00 TOMASANDA mickiy o f [facility] 2022-06-15 2022-06-15 Routine [facility] 1.2.840.114 [id number] Univers 07:45:00 08:43:50 Roshunda R LITERACY COORDINATOR 350.1.13.10 ity of Visit REGIONAL 4.2.7.2.686 [place] MATERNAL [id number] [facility] & CHILD [address] [place] [address] 2022-06-15 2022-06-15 Outpatient Catherine [facility] [id number] Univers 07:45:00 08:43:50 CHUY horowitz o [facility] 2022-06-15 2022-06-15 Outpatient Catherine [facility] [id number] Univers 07:45:00 07:45:00 TOMASANDA carlos manuel o [facility] 2022-06-01 2022-06-01 [facility] [id number] Univers 10:30:00 10:53:34 TOMASANDA carlos manuel o [facility] 2022-06-01 2022-06-01 Routine [facility] 1.2.840.114 [id number] Univers 10:30:00 10:53:34 Roshunda R LITERACY COORDINATOR 350.1.13.10 ity of Visit REGIONAL 4.2.7.2.686 [place] MATERNAL [id number] [facility] & CHILD [address] [place] [address] 2022-05-18 2022-05-18 Routine [facility] 1.2.840.114 [id number] Univers 09:30:00 09:45:00 Roshunda R LITERACY COORDINATOR 350.1.13.10 ity of Visit REGIONAL 4.2.7.2.686 [place] MATERNAL [id number] [facility] & CHILD [address] [place] [address] 2022-05-18 2022-05-18 Outpatient [facility] [id number] Univers 09:30:00 09:32:24 CHUY horowitz o f [facility] 2022-05-04 2022-05-04 Outpatient Catherine [facility] [id number] Univers 11:00:00 11:45:50 CHUY horowitz o f [facility] 2022-05-04 2022-05-04 Routine [facility] 1.2.840.114 [id number] Univers 11:00:00 11:45:50 Chuy R LITERACY COORDINATOR 350.1.13.10 ity of Visit [facility] 4.2.7.2.686 [place] MATERNAL [phone] Med ical & CHILD [address] [place] [address] 2022-05-02 2022-05-02 Outpatient Catherine [facility] [id number] Univers 08:45:00 08:45:00 CHUY horowitz o [facility] 2022-04-28 2022-04-28 Outpatient X ADUM, [facility] NIKHIL [id number] Univers 14:17:00 15:55:00 JAYLEEN horowitz of [facility] 2022-04-28 2022-04-28 [facility] [id number] [id number] Univers 14:17:00 15:55:00 Jayleen HOLLAND 350.1.13.10 it[place] of [place] [id number] [facility] [address] 2022-04-28 2022-04-28 Orders Doctor LINDA 1.2.840.114 [id number] Univers 00:00:00 00:00:00 Only Unassigned, ANTONIO 350.1.13.10 ity of [place] [facility] 4.2.7.2.686 [place] [phone] [facility] [address] 2022-04-18 2022-04-18 Outpatient [facility] [id number] Univers 08:45:00 09:31:59 CHUY horowitz o [facility] 2022-04-18 2022-04-18 Routine [facility] 1.2.840.114 [id number] Univers 08:45:00 09:31:59 Roshunda R LITERACY COORDINATOR 350.1.13.10 ity of Visit REGIONAL 4.2.7.2.686 [place] MATERNAL [id number] [facility] ical & CHILD [address] [place] [address] 2022-04-03 2022-04-03 Outpatient [facility] [id number] Univers 08:45:00 09:20:02 ROSHUNDA ity o f [facility] 2022-04-03 2022-04-03 Routine [facility] 1.2.840.114 [id number] Univers 08:45:00 09:20:02 Roshunda R LITERACY COORDINATOR 350.1.13.10 ity of Visit REGIONAL 4.2.7.2.686 [place] MATERNAL [phone] [facility] & [address] 2022-04-03 2022-04-03 Outpatient [facility] [id number] Univers 08:45:00 08:45:00 ROSHUNDA ity o [facility] 2022-03-20 2022-03-20 Outpatient [facility] [id number] Univers 08:45:00 09:31:24 ROSHUNDA ity o [facility] 2022-03-20 2022-03-20 [facility] 1.2.840.114 [id number] Univers 08:45:00 09:31:24 Roshunda R LITERACY COORDINATOR 350.1.13.10 ity of Visit REGIONAL 4.2.7.2.686 [place] MATERNAL [id number] [facility] & CHILD [address] [place] [address] 2022-03-20 2022-03-20 Out[facility] [id number] Univers 08:45:00 08:45:00 ROSHUNDA ity o [facility] 2022-03-14 2022-03-14 Abstract [facility] 1.2.840.114 [id number] Univers 00:00:00 00:00:00 Roshunda R LITERACY COORDINATOR 350.1.13.10 ity of REGIONAL 4.2.7.2.686 [place] MATERNAL [phone] Med ical & CHILD [address] [place] [address] 2022-03-13 2022-03-13 [facility] [facility] 1.2 .840.114 [id number] Univers 10:15:00 10:45:00 Visit Trent Villegas LITERACY COORDINATOR 350.1.13.10 ity of REGIONAL 4.2.7.2.686 [place] as MATERNAL [id number] [facility] CHILD [address] [place] [address] 2022-03-13 2022-03-13 Outpatient P [facility] [id number] Univers 10:15:00 10:15:00 TRENT horowitz [facility] 2022-02-27 2022-02-27 Refill Norma [facility] 1.2.840.114 [id number] Univers 00:00:00 00:00:00 Chuy Alexander LITERACY COORDINATOR 350.1.13.10 ity of REGIONAL 4.2.7.2.686 [place] MATERNAL [id number] [facility] & CHILD [address] [place] [address] 2022-02-20 2022-02-20 Supervisor [facility] [facility], [facility] 1.2 .840.114 [id number] Univers 09:00:00 10:00:00 Visit Chuy Green LITERACY COORDINATOR 350.1.13.10 ity of [place] REGIONAL 4.2.7.2.686 [place] MATERNAL [id number] [facility] & [address] 2022-02-20 2022-02-20 Outpatient P LIVIA [facility] [id number] Univers 09:00:00 09:00:00 KIT horowitz [facility] 2022-02-20 2022-02-20 Outpatient R [facility] [id number] Univers 08:15:00 08:39:36 CHUY horowitz o f [facility] 2022-02-20 2022-02-20 Routine Norma [facility] 1.2.840.114 [id number] Univers 08:15:00 08:39:36 Chuy Alexander LITERACY COORDINATOR 350.1.13.10 ity of Visit REGIONAL 4.2.7.2.686 [place] as MATERNAL [id number] [facility] ical & CHILD [address] [place] [address] 2022-01-23 2022-01-23 Outpatient R [facility] [id number] Univers 13:45:00 14:26:24 ROSHUNDA ity o f [facility] 2022-01-23 2022-01-23 Routine Norma [facility] 1.2.840.114 [id number] Univers 13:45:00 14:26:24 Roshunda R LITERACY COORDINATOR 350.1.13.10 ity of Visit REGIONAL 4.2.7.2.686 [place] MATERNAL [id number] [facility] [address] [place] [address] 2022-01-23 2022-01-23 Outpatient R [facility] [id number] Univers 13:45:00 13:45:00 ROSHUNDA ity o f [facility] 2022-01-06 2022-01-06 Abstract Norma [facility] 1.2.840.114 [id number] Univers 00:00:00 00:00:00 Roshunda R LITERACY COORDINATOR 350.1.13.10 ity of REGIONAL 4.2.7.2.686 [place] as MATERNAL [id number] [facility] & CHILD [address] [place] [address] 2021-12-30 2021-12-30 Abstract Norma [facility] 1.2.840.114 [id number] Univers 00:00:00 00:00:00 Roshunda R LITERACY COORDINATOR 350.1.13.10 ity of REGIONAL 4.2.7.2.686 [place] as MATERNAL [id number] [facility] ical & CHILD [address] [place] [address] 2021-12-29 2021-12-29 Supervisor [facility], [facility] 1.2 .840.114 [id number] Univers 08:15:00 08:45:00 Visit Tiffany Amado LITERACY COORDINATOR 350.1.13.10 ity of REGIONAL 4.2.7.2.686 [place] as MATERNAL [id number] [facility] ical & CHILD [address] [place] [address] 2021-12-29 2021-12-29 [facility] [id number] Univers 08:15:00 08:15:00 TIFFANY regis [facility] 2021-12-26 2021-12-26 Initial Norma [facility] 1.2.840.114 [id number] Univers 14:00:00 15:20:36 Chuy R LITERACY COORDINATOR 350.1.13.10 ity of Visit REGIONAL 4.2.7.2.686 [place] as MATERNAL [id number] [facility] & [address] 2021-12-26 2021-12-26 [facility] [id number] Univers 14:00:00 15:20:36 CHUY horowitz o f [facility] 2021-12-26 2021-12-26 [facility] [id number] Univers 14:00:00 14:00:00 CHUY horowitz o marga [facility] 2021-12-26 2021-12-26 Outpatient Catherine [facility] [id number] Univers 14:00:00 14:00:00 CHUY horowitz o marga [facility] 2021-11-14 2021-11-14 [facility] [id number] Univers 13:45:00 13:45:00 SHARON regis [facility] 2021-10-13 2021-10-13 [facility] [id number] Univers 13:00:00 13:00:00 SHARON horowitz [facility] 2021-07-13 2021-07-13 Office [facility] [id number] [id number] Univers 13:00:49 14:07:12 Visit Sharon Gregg LITERACY COORDINATOR 350.1.13.10 it y of REGIONAL 4.2.7.2.686 [place] as MATERNAL [id number] [facility] & [address] 2021-07-13 2021-07-13 [facility] [id number] Univers 13:00:00 13:00:00 SHARON regis [facility] 2021-07-13 2021-07-13 Orders Doctor MCKEON 1.2.840.114 [id number] Univers 00:00:00 00:00:00 Only Unassigned, ANTONIO 350.1.13.10 ity of [facility] 4.2.7.2.686 [facility] [phone] [facility] [address] [place] 2021-06-26 2021-06-26 Emergency X [facility] ERT [id number] Univers 03:06:00 04:40:00 [facility] 2021-06-26 2021-06-26 [facility] [id number] [id number] Univers 03:06:00 04:40:00 [facility] Maria Antonia 350.1.13.10 ity [facility] 4.2.7.2.686 [facility] [id number] [facility] [address] [place] 2021-06-26 2021-06-26 Emergency X [facility] ERT [id number] Univers 03:06:00 03:06:00 [facility] Results Test Description Test Time Test Comments Results Result Comments Source POCT URINALYSIS W SPECIFIC GRAVITY 2023-06-17 00:55:00 Test Item Value Reference Range Interpretation Comme nts POCT U SP GRAV (test code = 3255) 1.025 mg/dl 1.005-1.025 POCT PH U (test code = 3254) 5.0 mg/dl 5-8 POCT U LEUK EST (test code = 3263) 1+ Negative - Negative POCT U NIT (test code = 3262) neg Negative - Negative POCT U PROT (test code = 3259) trace Negative - Negative POCT U GLU (test code = 3256) normal Negative - Negative POCT U KETONE (test code = 3258) neg Negative - Negative POCT U UROBILI (test code = 3260) normal 0.2-1 POCT U BILI (test code = 3261) neg Negative - Negative POCT U BLD (test code = 3257) 250 Negative - Negative POCT U COLOR (test code = 3266) dark yellow POCT U APPEAR (test code = 3267) [facility]y [id number] 00:55:00 Test Item Value Reference Range Interpretation Comments POCT PREG (test code = 1605) Negative On board controls acceptable with C Yes Line (test code = 3574) POCT PREG LOT # (test code = 3575) POCT PREG TEST DATE (test code = 3576) [facility] [id number] 15:55:00 Test Item Value Reference Range Interpretation Comments POCT PREG (test code = 1605) Negative On board controls acceptable with C Yes Line (test code = 3574) POCT PREG LOT # (test code = 3575) POCT PREG TEST DATE (test code = 3576) [facility] [id number] 15:55:00 Test Item Value Reference Range Interpretation Comments POCT PREG (test code = 1605) Negative On board controls acceptable with C Yes Line (test code = 3574) POCT PREG LOT # (test code = 3575) POCT PREG TEST DATE (test code = 3576) [facility] [id number] 15:31:00 Test Item Value Reference Range Interpretation Comments POCT PREG (test code = 1605) Negative On board controls acceptable with C Yes Line (test code = 3574) POCT PREG LOT # (test code = 3575) POCT PREG TEST DATE (test code = 3576) [facility] [id number] 15:31:00 Test Item Value Reference Range Interpretation Comments POCT PREG (test code = 1605) Negative On board controls acceptable with C Yes Line (test code = 3574) POCT PREG LOT # (test code = 3575) POCT PREG TEST DATE (test code = 3576) [facility] [id number] 14:01:00 Test Item Value Reference Range Interpretation Comments POCT PREG (test code = 1605) Negative On board controls acceptable with C Yes Line (test code = 3574) POCT PREG LOT # (test code = 3575) POCT PREG TEST DATE (test code = 3576) [facility] [id number] 14:01:00 Test Item Value Reference Range Interpretation Comments POCT PREG (test code = 1605) Negative On board controls acceptable with C Yes Line (test code = 3574) POCT PREG LOT # (test code = 3575) POCT PREG TEST DATE (test code = 3576) [facility] [id number] 14:01:00 Test Item Value Reference Range Interpretation Comments POCT PREG (test code = 1605) Negative On board controls acceptable with C Yes Line (test code = 3574) POCT PREG LOT # (test code = 3575) POCT PREG TEST DATE (test code = 3576) [facility] Notes Date/Time Note Provider Source 2023-06-16 Formatting of this note might be differe nt from the original. Bar Garcia RN [facility] 18:03:00-00:00 Regarding: vag burning when urinating, sharp pain lower abdominal and genital area x 1.5 wks ----- Message from Malorie Guevara sent at 06/16/2023 5 :49 PM CDT ----- Lita Khoury is a 18 year old female that has had vag bleeding for 2.5 months. Pt began experiencing burning when urinating and sharp pain in lower abdominal and genital area x 1.5 wks. Pt is asking to speak with a nurse for advice. 2023-06-16 [facility] 18:03:00-00:00 Adult Triage Assessment Last Clinic Visit: 12/12/22 - [facility] for Nexplanon placement Primary Symptom: burning when urinating Onset / Duration: 1.5 weeks Location / Description: vaginal pain when urinat ing Pain / Severity: 4/10 - during triage call, 7/10 after urinating Associated Symptoms: lower a bdominal pain, heavier bleeding than usual, lower back pain Fever / Method: Denied - had chills but has not check temp Hydration: drinking water, decreased appetite. Treatment so far: Tylenol 500mg every 4 hours Effect on ADL's: Some change LMP: 04/19/22 - current Pre-existing condition / Immunocompromised: Anem ia Urgent care appointment made for today at 8pm at [facility]. Call back advice given. Advi sed to follow up with OBGYN due to abnormal periods. Patient verbalized understanding. TONY Del Real, RN [facility] Reason for Disposition Side (flank) or lower back pain present Protocols used: Urination Pain - [id number]
[2023-08-09 16:49] LABS: Absolute Lymphocytes (CBC) 0.5 K/uL (0.7-4.9); Hematocrit 41.3 % (36.0-45.0); Lymphocytes % 4.6 % (15.3-44.8); MCV 87.8 fL (80-100); MPV 7.9 fL (7.6-11.3); Platelets 251 thou/uL (152-406); RBC Red Blood Cell Count 4.71 M/uL (3.86-4.86)
[2023-08-09 16:51] LABS: Specific Gravity 1.015 (1.005-1.030)
[2023-08-09 16:53] LABS: Specific Gravity 1.015 (1.005-1.030); Urine Bacteria <20 /HPF (<20); Urine Bilirubin NEGATIVE (Negative); Urine Blood Trace (Negative); Urine Clarity Turbid (Clear); Urine Color Light-Yellow (Yellow); Urine Glucose NEGATIVE (Negative); Urine Mucus Slight /HPF (None Seen); Urine Protein TRACE (Negative); Urine RBC <5 /HPF (None Seen); Urine Urobilinogen Normal (Normal); Urine WBC Clump Occasional /HPF (None Seen); Urine pH 5.5 (5.0-7.0)
[2023-08-09 17:05] LABS: Albumin 4.5 g/dL (3.4-5.0); Potassium 3.6 mEq/L (3.5-5.1); Protein, Total 8.5 g/dL (6.4-8.2)
[2023-08-09] MEDS ORDERED: NA CHLORIDE 0.9% 1,000 ML ONE (17:09)
[2023-08-09] MEDS ORDERED: CEFTRIAXONE 1000 MG/VIAL ONE (17:09)
--- NOTE | 2023-08-09 17:29 | RAD REPORT ---
EXAM DESCRIPTION: CTAbdomen Pelvis W Contrast - 08/09/2023 5:21 pm CLINICAL HISTORY: Abdominal pain. ABD PAIN COMPARISON: No comparisons TECHNIQUE: Biphasic CT imaging of the abdomen and pelvis was performed with 100 ml non-ionic IV cont rast. All CT scans are performed using dose optimization technique as appropriate and may include automated exposure control or mA/KV adjustment according to patient size. FINDINGS: The lung bases are clear. The liver, spleen, pancreas, adrenal glands and kidneys are within normal limits. No bowel obstruction, free air, free fluid or abscess. Prominent stool retention throughout the colon . The appendix is normal. No evidence of significant lymphadenopathy. No suspicious bony findings. IMPRESSION: No acute intra-abdominal or pelvic finding.
--- NOTE | 2023-08-09 17:50 | EDPHYS ---
Physician Documentation [facility] Name: Jackie Garrido Age: 18 yrs Sex: Female : 2005 Arrival Date: 08/09/2023 Time: 14:39 Bed 18 Private MD: ED Physician Martell Edouard HPI: 08/09 16:35 This 18 yrs old Female presents to ER via Ambulatory with complaints of renetta Fever, Back Pain, Abdominal Pain, Nausea. 16:35 The patient reports fever, that was measured at 101 degrees Fahrenheit. Onset: The renetta symptoms/episode began/occurred 1 day(s) ago. Modifying factors: there are no obvious modifying factors. Associated signs and symptoms: Pertinent positives: abdominal pain, chills. Severity of symptoms: At their worst the symptoms were moderate in the emergency department the symptoms are unchanged. The patient has not experienced similar symptoms in the past. 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 - Social history:: Smoking status: Reported history of juuling and/or vaping. ROS: 16:38 Eyes: Negative for injury, pain, redness, and discharge, ENT: Negative for injury, renetta pain, and discharge, Neck: Negative for injury, pain, and swelling, Cardiovascular: Negative for chest pain, palpitations, and edema, Respiratory: Negative for shortness of breath, cough, wheezing, and pleuritic chest pain, : Negative for injury, bleeding, discharge, and swelling, MS/Extremity: Negative for injury and deformity, Skin: Negative for injury, rash, and discoloration, Neuro: Negative for headache, weakness, numbness, tingling, and seizure, Psych: Negative for depression, anxiety, suicide ideation, homicidal ideation, and hallucinations, Allergy/Immunology: Negative for hives, rash, and allergies, Endocrine: Negative for neck swelling, polydipsia, polyuria, polyphagia, and marked weight changes, Hematologic/Lymphatic: Negative for swollen nodes, abnormal bleeding, and unusual bruising. 16:38 Constitutional: Positive for chills, fever. 16:38 Abdomen/GI: Positive for abdominal pain, of the right lower quadrant and left lower quadrant. 16:38 Back: Positive for flank pain, bilaterally. Exam: 16:38 Constitutional: This is a well developed, well nourished patient who is awake, alert, renetta and in no acute distress. Head/Face: Normocephalic, atraumatic. Eyes: Pupils equal round and reactive to light, extra-ocular motions intact. Lids and lashes normal. Conjunctiva and sclera are non-icteric and not injected. Cornea within normal limits. Periorbital areas with no swelling, redness, or edema. ENT: Nares patent. No nasal discharge, no septal abnormalities noted. Tympanic membranes are normal and external auditory canals are clear. Oropharynx with no redness, swelling, or masses, exudates, or evidence of obstruction, uvula midline. Mucous membranes moist. Neck: Trachea midline, no thyromegaly or masses palpated, and no cervical lymphadenopathy. Supple, full range of motion without nuchal rigidity, or vertebral point tenderness. No Meningismus. Chest/axilla: Normal chest wall appearance and motion. Nontender with no deformity. No lesions are appreciated. Cardiovascular: Regular rate and rhythm with a normal S1 and S2. No gallops, murmurs, or rubs. Normal PMI, no JVD. No pulse deficits. Respiratory: Lungs have equal breath sounds bilaterally, clear to auscultation and percussion. No rales, rhonchi or wheezes noted. No increased work of breathing, no retractions or nasal flaring. Back: No spinal tenderness. No costovertebral tenderness. Full range of motion. Pelvic Exam: Normal external genitalia. Speculum exam with closed cervical os, no discharge or bleeding noted. Bimanual exam with normal adnexa, no adnexal or cervical motion tenderness. Normal uterus. Skin: Warm, dry with normal turgor. Normal color with no rashes, no lesions, and no evidence of cellulitis. MS/ Extremity: Pulses equal, no cyanosis. Neurovascular intact. Full, normal range of motion. Neuro: Awake and alert, GCS 15, oriented to person, place, time, and situation. Cranial nerves II-XII grossly intact. Motor strength 5/5 in all extremities. Sensory grossly intact. Cerebellar exam normal. Normal gait. Psych: Awake, alert, with orientation to person, place and time. Behavior, mood, and affect are within normal limits. 16:38 Abdomen/GI: Inspection: abdomen appears normal, Bowel sounds: normal, Palpation: mild abdominal tenderness, in the right lower quadrant and left lower quadrant, Liver: no appreciated palpable abnormalities, Hernia: not appreciated. 16:38 Back: ROM is normal, painless, normal spinal alignment noted, CVA tenderness, that is mild, is noted bilaterally, muscle spasm, is not present. Vital Signs: 15:08 BP 105 / 73; Pulse 104; Resp 16; Temp 98.8; Pulse Ox 100% ; Weight 52.16 kg; Height 5 ko1 ft. 1 in. ; 19:12 BP 112 / 63; Pulse 87; Resp 17; Pulse Ox 100% on R/A; me1 15:08 Body Mass Index 21.73 (52.16 kg, 154.94 cm) ko1 MDM: 15:15 Patient medically screened. [facility] 16:39 Differential diagnosis: viral Infection, bacterial infection, URI, UTI, renetta gastroenteritis, Cholelithiasis Pyelonephritis Renal Infarction. Data reviewed: vital signs, nurses notes, lab test result(s), CBC, electrolytes, hepatic panel, radiologic studies, CT scan. Consideration of Admission/Observation Escalation of care including admission/observation considered. I considered the following discharge prescriptions or medication management in the emergency department Medications were administered in the Emergency Department. See MAR. Test considered but Not performed: Ultrasound no abd usg. Historians other than the Patient: ayad hirsch historian. Care significantly affected by the following chronic conditions: none. Counseling: I had a detailed discussion with the patient and/or guardian regarding the historical points, exam findings, and any diagnostic results supporting the discharge/admit diagnosis, lab results, radiology results, the need for outpatient follow up, for definitive care, a family practitioner. 08/09 15:19 Order name: CBC with Diff; Complete Time: 18:33 [facility] 08/09 15: Order name: Comprehensive Metabolic Panel; Complete Time: 17:48 [facility] 08/09 15:19 Order name: Blood Culture Adult (2) [facility] 08/09 15:19 Order name: Lactate w/ 2H reflex if indic.; Complete Time: 17:48 [facility] 08/09 15:19 Order name: Urinalysis w/ reflexes; Complete Time: 17:00 [facility] 08/09 15:19 Order name: PREGU; Complete Time: 17:00 [facility] 08/09 15:19 Order name: Lipase; Complete Time: 17:48 [facility] 08/09 16:56 Order name: Urine Culture [facility] 08/09 17:57 Order name: CBC Smear Scan; Complete Time: 18:33 [facility] 08/09 16:35 Order name: CT Abd/Pelvis - IV Contrast Only; Complete Time: 17:48 [facility] Administered Medications: 17:07 Drug: NS 0.9% IV 1000 ml Route: IV; Rate: 1 bolus; Site: left antecubital; me1 17:07 Drug: Rocephin IV 1 grams Route: IV; Rate: per protocol; Site: left antecubital; me1 18:30 Drug: Ciprofloxacin PO 500 mg Route: PO; me1 18:40 Drug: Ketorolac IVP 30 mg Route: IVP; Site: left antecubital; me1 19:13 Follow up: Response: No adverse reaction; Pain is decreased me1 Disposition Summary: 08/09/23 17:50 Discharge Ordered Location: Home [facility] Problem: new renetta Symptoms: have improved renetta Condition: Stable renetta Diagnosis - UTI/ Urinary tract infection, site not specified renetta - Fever, unspecified renetta - Abdominal pain, unspecified renetta - Elevated white blood cell count renetta Followup: renetta - With: Private Physician - When: 2 - 3 days - Reason: Recheck today's complaints, Continuance of care, Re-evaluation by your physician Discharge Instructions: - Discharge Summary Sheet renetta - Abdominal Pain, Adult renetta - Fever, Adult renetta - Nausea, Adult renetta - Urinary Tract Infection, Adult renetta - Urinary Tract Infection, Adult, [id number] renetta - Abdominal Pain, Adult, [id number] renetta - Nausea, Adult, [id number] [facility] Forms: - Medication Reconciliation Form [facility] - Thank You Letter [facility] - Antibiotic Education renetta - Prescription Opioid Use renetta - Patient Portal Instructions [facility] - Leadership Thank You Letter [facility] Prescriptions: - ondansetron 4 mg Oral Tablet,disintegrating - take 1 tablet by ORAL route every 6-8 hours for 24 hours; 20 tablet; Refills: renetta 0, Product Selection Permitted - Cipro 250 mg Oral Tablet - take 1 tablet by ORAL route every 12 hours; 14 tablet; Refills: 0, Product renetta Selection Permitted - dicyclomine 10 mg/5 mL Oral Solution - take 10 milliliters by ORAL route 4 times per day; 180 milliliter; Refills: 0, renetta Product Selection Permitted Signatures: Dispatcher [employer] Martell Smith MD MD cha Oliver, Kathy, RN RN ko1 Cathryn Walter RN RN me1 Corrections: (The following items were deleted from the chart) 17:05 15:20 Stone Protocol+CT.RAD.BRZ ordered. EDMS EDMS
--- NOTE | 2023-08-09 17:50 | ER ---
Nurse's Notes [facility] Name: Jackie Garrido Age: 18 yrs Sex: Female : 2005 Arrival Date: 08/09/2023 Time: 14:39 Bed 18 Private MD: Diagnosis: UTI/ Urinary tract infection, site not specified;Fever, unspecified;Abdominal pain, unspecified;Elevated white blood cell count Presentation: 08/09 15:08 Chief complaint: Patient states: back pain, abdominal pain, low grade fever, nausea and ko1 vomiting since yesterday. Tmax 101. No urinary symptoms. Coronavirus screen: At this time, the client does not indicate any symptoms associated with coronavirus-19. Ebola Screen: No symptoms or risks identified at this time. Initial Sepsis Screen: Does the patient meet any 2 criteria? No. Patient's initial sepsis screen is negative. Does the patient have a suspected source of infection? No. Patient's initial sepsis screen is negative. Risk Assessment: Do you want to hurt yourself or someone else? Patient reports no desire to harm self or others. Onset of symptoms was August 08, 2023. 15:08 Method Of Arrival: Ambulatory ko1 15:08 Acuity: GUME 4 ko1 Triage Assessment: 15:13 General: Appears in no apparent distress. Behavior is calm, cooperative, appropriate ko1 for age. Pain: Complains of pain in abdomen. Musculoskeletal: Capillary refill < 3 seconds. 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 - Social history:: Smoking status: Reported history of juuling and/or vaping. Screenin:13 [facility] ED Fall Risk Assessment (Adult) History of falling in the last 3 months, me1 including since admission No falls in past 3 months (0 pts) Confusion or Disorientation No (0 pts) Intoxicated or Sedated No (0 pts) Impaired Gait No (0 pts) Mobility Assist Device Used No (0 pt) Altered Elimination No (0 pt) Score/Fall Risk Level 0 - 2 = Low Risk. Abuse screen: Denies threats or abuse. Nutritional screening: No deficits noted. Tuberculosis screening: No symptoms or risk factors identified. Assessment: 17:50 General: Appears uncomfortable, well groomed, well developed, well nourished, Behavior me1 is calm, cooperative, appropriate for age, Reports chills for fever for suprapubic abdominal pain that radiates to her back, low grade fever that started yesterday. Pain: Complains of pain in suprapubic area Pain radiates to left low back and right low back Pain currently is 7 out of 10 on a pain scale. Quality of pain is described as burning, shooting, Pain began gradually, Is continuous. Neuro: Level of Consciousness is awake, alert, obeys commands, Oriented to person, place, time, situation, Appropriate for age. Cardiovascular: Capillary refill < 3 seconds Patient's skin is warm and dry. Respiratory: Airway is patent Respiratory effort is even, unlabored, Respiratory pattern is regular, symmetrical. : Reports pain in suprapubic area. Vital Signs: 15:08 BP 105 / 73; Pulse 104; Resp 16; Temp 98.8; Pulse Ox 100% ; Weight 52.16 kg; Height 5 ko1 ft. 1 in. ; 19:12 BP 112 / 63; Pulse 87; Resp 17; Pulse Ox 100% on R/A; me1 15:08 Body Mass Index 21.73 (52.16 kg, 154.94 cm) ko1 ED Course: 14:44 Patient arrived in ED. ts1 15:13 Triage completed. ko1 15:13 Arm band placed on right wrist. Patient placed in waiting room, Patient notified of ko1 wait time. 15:15 Martell Edouard MD is Attending Physician. [facility] 16:08 Cathryn Walter, DONNELL is Primary Nurse. me1 16:38 Lipase Sent. me1 16:38 PREGU Sent. me1 16:38 Urinalysis w/ reflexes Sent. me1 16:38 Lactate w/ 2H reflex if indic. Sent. me1 16:38 Blood Culture Adult (2) Sent. me1 16:38 Comprehensive Metabolic Panel Sent. me1 16:38 CBC with Diff Sent. me1 16:38 Inserted saline lock: 22 gauge in left antecubital area, using aseptic technique. me1 17:22 CT Abd/Pelvis - IV Contrast Only In Process Unspecified. EDMS 19:13 Patient has correct armband on for positive identification. Bed in low position. Call me1 light in reach. Side rails up X2. Provided Education on: POC. Verbalized understanding.. 19:13 IV discontinued, intact, bleeding controlled, No redness/swelling at site. Pressure me1 dressing applied. 19:13 No provider procedures requiring assistance completed. me1 Administered Medications: 17:07 Drug: NS 0.9% IV 1000 ml Route: IV; Rate: 1 bolus; Site: left antecubital; me1 17:07 Drug: Rocephin IV 1 grams Route: IV; Rate: per protocol; Site: left antecubital; me1 18:30 Drug: Ciprofloxacin PO 500 mg Route: PO; me1 18:40 Drug: Ketorolac IVP 30 mg Route: IVP; Site: left antecubital; me1 19:13 Follow up: Response: No adverse reaction; Pain is decreased me1 Medication: 19:16 VIS not applicable for this client. me1 Outcome: 17:50 Discharge ordered by . renetta 19:16 Discharged to home ambulatory. me1 19:16 Condition: stable 19:16 Discharge instructions given to patient, Instructed on discharge instructions, follow up and referral plans. medication usage, Demonstrated understanding of instructions, follow-up care, medications, Prescriptions given X 3. 19:17 Patient left the ED. me1 Signatures: Dispatcher [employer] Martell Smith MD MD cha Oliver, Kathy, RN RN ko1 Radha Bender PAS PAS ts1 Cathryn Walter, DONNELL RN me1
[2023-08-09 17:56] LABS: Blood Morphology Comment NOT SEEN (NOT SEEN); Platelet Estimate ADEQ; White Blood Cell Scan OK (OK)
[2023-08-09] MEDS ORDERED: CIPROFLOXACIN HCL 500 MG TAB ONE (18:40)
[2023-08-09] MEDS ORDERED: KETOROLAC 30 MG/ML INJ ONE (18:51)
[2023-08-09 20:00] VITALS: TEMP 98.8; O2SAT 100
[2023-08-09 20:06] VITALS: BP 112/63
== END 2023-08-09 19:17 | disposition home or self-care (01) ==
LOC: ER 14:39
DX: N39.0 Urinary tract infection, site not specified (principal); R10.9 Unspecified abdominal pain; D72.829 Elevated white blood cell count, unspecified
CPT/HCPCS: 87040 ×2; 87088; 85025; 81001; 87086; 36415; 81025; 83605; 83690; 80053; 74177; 96375; 96374; 99284; Q9967; J7030; J0696